=== PATIENT | female | born 1955 | race American Indian/Alaskan Native ===

== ENCOUNTER 2016-07-16 15:42 | Emergency (ER) | payer BC ==
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
[2016-07-16 18:52] LABS: Basophils % (Auto) 0.4 % (0.0-1.8); Eosinophils % (Auto) 0.2 % (0.0-4.3); Hematocrit 43.1 % (30.3-42.9); Hemoglobin 14.2 gm/dl (10.1-14.3); Mean Corpuscular HGB Conc 33 % (30-34); Mean Corpuscular Hemoglobin 30 pg (28-32); Mean Corpuscular Volume 93 fl (79-97); Platelet Count 229 K/mm3 (140-440); Red Blood Count 4.65 M/mm3 (3.65-5.03); Red Cell Distribution Width 13.7 % (13.2-15.2); White Blood Count 8.1 K/mm3 (4.5-11.0)
[2016-07-16 19:07] LABS: INR 0.95 (0.87-1.13)
[2016-07-16 19:08] LABS: Creatine Kinase MB 19.4 ng/mL (0.0-4.0); Partial Thromboplastin Time 34.1 Sec. (24.2-36.6)
[2016-07-16 19:09] LABS: Alanine Aminotransferase 17 units/L (7-56); Albumin 4.6 g/dL (3.9-5); Albumin/Globulin Ratio 1.5 %; Alkaline Phosphatase 72 units/L (35-129); Anion Gap 18 mmol/L; BUN/Creatinine Ratio 17.14; Bilirubin,Total 0.3 mg/dL (0.1-1.2); Blood Urea Nitrogen 12 mg/dL (7-17); Calcium 9.2 mg/dL (8.4-10.2); Carbon Dioxide 21 mmol/L (22-30); Chloride 105.5 mmol/L (98-107); Creatine Kinase 924 units/L (30-135); Glucose 101 mg/dL (65-100); Potassium 3.8 mmol/L (3.6-5.0); Sodium 141 mmol/L (137-145); Total Protein 7.6 g/dL (6.3-8.2)
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
[2016-07-17] MEDS ORDERED: MORPHINE IV ONE (02:20)
[2016-07-17] MEDS ORDERED: ZOFRAN IV ONE (02:20)
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
[2016-07-17] MEDS ORDERED: NORCO 5/325 PO ONE (04:20)
[2016-07-17 05:11] VITALS: BP 122/61
== END 2016-07-17 04:30 | disposition home or self-care (01) ==
LOC: ED 15:42
DX: M62.838 Other muscle spasm (principal); I10 Essential (primary) hypertension; G43.909 Migraine, unspecified, not intractable, without status migrainosus; Z88.2 Allergy status to sulfonamides; V49.49XA Driver injured in collision with other motor vehicles in traffic accident, initial encounter; Y93.9 Activity, unspecified; Y92.9 Unspecified place or not applicable; Y99.9 Unspecified external cause status
CPT/HCPCS: 36415; 70450; 72040; 72070; 72100; 80053; 82550; 82553; 84484; 85025; 85610; 85730; 93005; 93010; 96374; 96375; 99284; J2270; J2405